=== PATIENT | male | born 1985 | race Caucasian/White ===

== ENCOUNTER 2019-03-23 18:16 | Emergency (ER) | payer OTHER ==
[2019-03-23] MEDS ORDERED: Acetaminophen/HYDROcodone 325-5 MG Tab PO ONE (18:25)
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
--- NOTE | 2019-03-24 08:40 | CR ---
Left first toe: Four views of the left first toe were obtained. Comparison: No prior foot or toe exam. Joint spaces are preserved. No focal erosive change is seen. No fracture or other bony abnormality is identified. Impression: 1. No abnormality is appreciated on left first toe exam. Diagnostic code #1 This report was dictated in [place] Standard Time
== END 2019-03-23 19:08 | disposition home or self-care (01) ==
LOC: JD.ED 18:16
DX: S90.112A Contusion of left great toe without damage to nail, initial encounter (principal); Z88.1 Allergy status to other antibiotic agents; W22.8XXA Striking against or struck by other objects, initial encounter; Y93.89 Activity, other specified
CPT/HCPCS: 73660; 99283; A9270